=== PATIENT | female | born 1970 | race African-American/Black ===

== ENCOUNTER 2017-04-11 15:28 | Emergency (ER) | payer OTHER ==
[~2017-04-11] VITALS: Ht 157.5 cm; Wt 65.8 kg
[2017-04-11 15:52] VITALS: BP 130/74; TEMP 98.3
== END 2017-04-11 18:19 | disposition home or self-care (01) ==
LOC: ED 15:28
DX: S20.211A Contusion of right front wall of thorax, initial encounter (principal); S30.0XXA Contusion of lower back and pelvis, initial encounter; Y04.0XXA Assault by unarmed brawl or fight, initial encounter; Y92.098 Other place in other non-institutional residence as the place of occurrence of the external cause
CPT/HCPCS: 96372; 99283; J1885

== ENCOUNTER 2020-01-25 11:45 | Emergency (ER) | payer OTHER ==
[~2020-01-25] VITALS: Ht 157.5 cm; Wt 56.2 kg
[2020-01-25 13:56] VITALS: BP 115/59; TEMP 98.2
== END 2020-01-25 13:57 | disposition home or self-care (01) ==
LOC: ED 11:45
DX: N73.9 Female pelvic inflammatory disease, unspecified (principal); N39.0 Urinary tract infection, site not specified
CPT/HCPCS: 81000; 81025; 87070; 87077; 87086; 87088; 87185; 87186; 87205; 87490; 87590; 96372; 99284; J0696

== ENCOUNTER 2023-03-22 12:40 | Emergency (ER) | payer OTHER ==
[~2023-03-22] VITALS: Ht 160 cm; Wt 65.8 kg
[2023-03-22 14:24] VITALS: BP 108/58; TEMP 99.1
== END 2023-03-22 14:24 | disposition home or self-care (01) ==
LOC: ED 12:40
DX: N39.0 Urinary tract infection, site not specified (principal); F14.90 Cocaine use, unspecified, uncomplicated
CPT/HCPCS: 80307; 81000; 87077; 87086; 87088; 87186; 87502; 87635; 87651; 99283; U0003